=== PATIENT | male | born 1945 | race Caucasian/White ===

== ENCOUNTER 2017-07-27 10:52 | Emergency (ER) | payer MEDICARE, OTHER ==
[2017-07-27] MEDS: APIXABAN 5 MG TABLET PO (11:15)
== END 2017-07-27 11:22 | disposition home or self-care (01) ==
LOC: E/R 11:22
DX: I82.411 Acute embolism and thrombosis of right femoral vein (principal)
CPT/HCPCS: 99283